=== PATIENT | male | born 1965 | race Caucasian/White ===

== ENCOUNTER 2023-06-19 13:59 | Emergency (ER) | payer OTHER, SELFPAY ==
[2023-06-19 14:05] VITALS: BP 139/114; PULSE 119; RESP 23; TEMP 37.7; O2SAT 97; BMI 31.9
--- NOTE | 2023-06-19 14:17 | XR_ITS ---
FINAL REPORT CLINICAL HISTORY: COUGH,SOA FINDINGS: Two views of the chest were obtained. The heart size and pulmonary vascularity are within normal limits. The mediastinum is normal. No acute pulmonary abnormality is identified. There is no pneumothorax. The bony thorax is intact. IMPRESSION: No active cardiopulmonary disease. Reviewed, Interpreted and Dictated by Alec Quick III, MD Transcribed by Mounika Esteban Authenticated and [facility]
[2023-06-19 14:36] LABS: UTC Influenza A Antigen Negative (Negative)
[2023-06-19 14:37] LABS: UTC Influenza B Antigen Negative (Negative)
--- NOTE | 2023-06-19 14:44 | EXP.UTC ---
Discharge Plan Disposition Patient Disposition: Home, Self-Care Condition: Fair Prescriptions Prescriptions: New prednisone [prednisone] 20 mg tablet 20 mg PO BID 5 Days Qty: 10 0RF [id number]-lungaennb-SO [Bromfed DM] 2-30-10 mg/5 mL Syrup 5 ml PO Q4H PRN (Reason: Cough) Qty: 120 0RF cefdinir 300 mg capsule 300 mg PO BID 20 Days Qty: 20 0RF Referrals Follow up/Referrals: Provider,Referral, MD [Primary Care Provider] - See instructions Activity Restrictions/Add. Instructions Additional Instructions/Restrictions: take all medications as prescribed rest, fluids Return to [facility] if fails to improve or worsen Clinical Impressions Clinical Impression: LLL pneumonia Instructions Patient Instructions: DI for Pneumonia -- Adult Discharge ED Provider: Lucrecia Forte [facility] [place] HPI General Stated complaint: fever, shallow breathing Mode of Arrival: Ambulatory Source of Information: Patient Limitations: No Limitations Time Seen by Provider: 06/19/23 14:44 Description of Symptoms (Recalled from Triage Doc. by RN): PATIENT C/O FEVER, COUGH, AND PAIN TO LEFT CHEST AREA THAT IS WORSE WITH COUGH/DEEP BREATH AND LAYING ON LEFT SIDE HEENT Symptoms (Recalled from RN notes): No Resp Symptoms (Recalled from RN notes): Yes Skin Symptoms (Recalled from RN notes): No MS Symptoms (Recalled from RN notes): No Functional Status (Recalled from RN notes): WNL History of Present Illness Provider Complaint: 2 day history of cough, fever, congestion. Has been exposed to COVID. Feels as if cough could be productive but it hurts to cough. Has pain in his right lung. Hurts to lay on that side. Onset (ago): day(s) (2) Location: chest Relieving factors: none Exacerbating factors: none Associated symptoms: cough, fever/chills, loss of appetite and shortness of breath Treatments prior to arrival: none Related Data Previous Rx's Medication Instructions Recorded qbdghtixnnwvbqm-sykdenggqhbzxzl-SU 5 ml PO Q4H PRN Cough #120 mL 06/19/23 2 mg-30 mg-10 mg/5 mL oral syrup (Bromfed DM) cefdinir 300 mg capsule 300 mg PO BID 20 days #20 caps 06/19/23 prednisone 20 mg tablet 20 mg PO BID 5 days #10 tabs 06/19/23 Allergies Allergy/AdvReac Type Severity Reaction Status Date / Time No Known Allergies Allergy Verified 06/19/23 14:16 Worker's Comp Is this a Worker's Comp case?: No [facility] Disclaimer: The information contained in this section may have been updated after the patient was seen, as this information can be updated by other users. Social History Smoking Status: Never smoker alcohol intake: never current occupational status: employed Travel in the last 8 weeks: None ROS Obtained: Yes All systems reviewed & no additional complaints except as documented Constitutional Constitutional: Reports body ache, Reports chills, Reports fever(s) and Reports malaise Respiratory Respiratory: Reports chest congestion, Reports cough and Reports pain on inspiration Physical Exam General General appearance: alert and in no apparent distress Head Head exam: atraumatic, normocephalic and normal inspection Eye Eye exam: Present normal appearance, PERRL and EOMI ENT ENT exam: Present normal exam, normal oropharynx, mucous membranes moist, TM's normal bilaterally and normal external ear exam Neck Neck exam: Present normal inspection, full ROM and trachea midline; Absent meningismus or lymphadenopathy Chest Chest inspection: Present normal inspection and symmetric chest wall rise; Absent tenderness Respiratory Respiratory exam: Absent respiratory distress Expanded Respiratory Exam Location: Left: rales and Lower: rales Cardiovascular Cardiovascular exam: Present regular rate and normal rhythm; Absent JVD Abdominal Exam Abdominal exam: Present soft and normal bowel sounds; Absent distention, tenderness or guarding Extremities Exam Extremities exam: Present normal inspection, full ROM and normal capillary refill; Absent calf tenderness Back Exam Back exam: Present normal inspection; Absent tenderness Neurological Exam Neurological exam: Present alert and oriented X3 Psychiatric Psychiatric exam: Present normal affect and normal mood Skin Skin exam: Present warm, dry, intact and normal color Lymphatic Lymphatic Findings: no adenopathy Medical Decision Making Bart Inquiry Pt receiving controlled substance: No Vital Signs: 06/19/23 14:05 Temperature 99.9 F H Temperature Source Oral Pulse Rate [Left Brachial] 119 H Respiratory Rate 23 Blood Pressure [Left Arm] 139/114 H Blood Pressure Mean [Left Arm] 122 Blood Pressure Source [Left Arm] Automatic Cuff Blood Pressure Position [Left Arm] Sitting 02 Sat by Pulse Oximetry 97 Oxygen Delivery Method Room Air Lab Data Lab results reviewed: Yes I reviewed the patient's lab results. Lab Results 06/19/23 14:17: Influenza Type A Ag Negative, Influenza Type B Ag Negative Orders (Tests/Meds): ORDERS Category Date Time Status Chest XR 2 view (NOT portable) [XR chest 2V] Stat Exams 06/19/23 14:17 Taken Radiology Data #1: Image(s): Chest Image Reviewed: Yes I reviewed the patient's radiology image Preliminary Findings: Abnormal
[2023-06-19 14:49] VITALS: BP 139/114; PULSE 119; RESP 23; TEMP 37.7; O2SAT 97
[2023-06-19] MEDS: IBUPROFEN 400 MG TABLET 800 MG PO (15:03)
== END 2023-06-19 15:03 | disposition home or self-care (01) ==
PROVIDERS: Emergency Provider Physician Assistant
DX: J18.1 Lobar pneumonia, unspecified organism (principal); R07.1 Chest pain on breathing; R06.02 Shortness of breath; R05.9 Cough, unspecified; R50.9 Fever, unspecified; Z20.822 Contact with and (suspected) exposure to COVID-19
CPT/HCPCS: 71046; 87804; 99204; 99212; G0463